=== PATIENT | female | born 1995 | race Caucasian/White ===

== ENCOUNTER 2022-08-26 07:41 | Inpatient (IN) ==
[2022-08-26] MEDS ORDERED: OXYTOCIN 30 UNITS/500 ML BAG IV PRN ×2 (07:58)
[2022-08-26] MEDS ORDERED: LIDOCAINE 1% LOCAL 20 ML VIAL INFIL PRN (07:58)
[2022-08-26] MEDS: LACTATED RINGER'S 1,000 ML IV PRN ×3 (08:34→20:32)
--- NOTE | 2022-08-26 08:37 | History & Physical Report ---
Date of Service August 26, 2022 Assessment & Plan (1) 38 weeks gestation of : Plan: Admit, routine labs, oxytocin for augmentation Plan to AROM after adequate GBS coverage Epidural patient request Anticipate spontaneous vaginal delivery (2) Cholestasis during in third trimester: Plan: Well-controlled on oral medication CMP pending (3) COVID-19 affecting in third trimester: Plan: Diagnosed at 32 weeks, COVID test pending this morning (4) GBS (group B Streptococcus carrier), +RV culture, currently : Plan: Start IV clindamycin 900 mg every 8 hours GBS coverage, as culture is clinda sensitive Admission and Anticipated Discharge Date Admission Date: August 26, 2022 History of Present Illness Chief Complaint: IOL for cholestasis Primary Care Provider: NO PCP 7.4: 7.4/21.6% patient is a 26-year-old at 38 weeks and 2 days dated by 9- week ultrasound who presents to labor and delivery for induction of labor of cholestasis at term. Patient symptoms have improved since taking ursodiol 300 mg twice daily. Patient denies leaking of fluid or vaginal bleeding. Notes good movement. Complaining of regular contractions every 2 to 3 minutes. has been complicated by cholestasis, COVID-19 infection at 32 weeks, and GBS positive, with penicillin allergy Allergies Allergy/AdvReac Type Severity Reaction Status Date / Time amoxicillin Allergy Swelling Verified 08/15/22 14:06 of Lip/Tongue/Throat Home Medications Medication Instructions Recorded Confirmed Type vit no.95-ferrous 1 tab PO DAILY 08/07/22 08/15/22 History fumarate 28 mg-folic acid 800 mcg tablet () ursodiol 300 mg capsule 300 mg PO BID 08/07/22 08/15/22 History Patient History Medical History Cholestasis during diagnosed 1 week ago labor in third trimester contractions starting 35 weeks- placed on procardia Surgical History [place] teeth removed age 17 Social History Smoking Status: Never smoker Second Hand Exposure: No; Do You Dip or Chew Tobacco: No; Tobacco Cessation Education Requested by Patient: No Hx Alcohol Use: No Hx Substance Use: No Preferred Language: [place] Communication Ability: Effective 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 Beliefs That Will Affect Care: None marital status: Current Living Situation: Spouse Other Information That Helps Us Care for You: No Feels Safe at Home: Yes Safety Concerns: Feels Safe At This Time Assistive Devices: None 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 Review of Systems All systems reviewed & are unremarkable except as noted in HPI & below Physical Exam Constitutional: WD/WN, vitals as above Respiratory: normal respiratory effort, lungs clear to auscultation Cardiovascular: RRR, no murmur, no edema Gastrointestinal (Abdomen): normal bowel sounds, soft, nontender, no hepatosplenomegaly David's 3500 g Genitourinary: no vaginal lesions, no adnexal mass Cx: /-2 Results & Data ([facility]) Vital Signs (Past 12 Hours) Vital Signs Temp Pulse Resp BP 08/26/22 07:56 36.5 C 101 H 16 117/68 08/26/22 07:47 101 H 117/68 Monitoring External Monitor heart tracing: Baseline 1 35-1 40, moderate variability, positive accelerations, no decelerations, category 1 tracing Tocodynamometer Q. 2 to 3 minutes
[2022-08-26] MEDS: CLINDAMYCIN/D5W 900 MG/50 ML BAG IV SCH ×2 (08:53→16:55)
[2022-08-26 08:59] LABS: Hematocrit (blood only) 37.6 % (34.1-44.9); Hemoglobin 13.4 g/dl (12.0-16.0); Mean Corpuscular Hemoglobin 30.8 pg (25.0-34.0); Mean Corpuscular Hgb Conc 35.6 g/dL (32.0-36.0); Mean Corpuscular Volume 86.4 fL (80.0-100.0); Platelet Count 234 K/uL (130-400); RDW Coefficient of Variation 13.1 % (11.5-14.5); RDW Standard Deviation 40.6 fL (36.4-46.3); Red Blood Count 4.35 M/uL (3.93-5.22); White Blood Count 15.65 K/ul (4.8-10.8)
[2022-08-26 09:23] LABS: Alanine Aminotransferase 9 U/L (7-52); Albumin Level 3.3 gm/dl (3.4-5.0); Alkaline Phosphatase 136 U/L (34-104); Anion Gap 9 (3-11); Aspartate Aminotransferase 16 U/L (13-39); BUN Creatinine Ratio 13.7 (10-20); Bilirubin,Total 0.4 mg/dl (0.2-1.0); Blood Urea Nitrogen 7 mg/dl (6-23); Carbon Dioxide 22 mmol/L (21-32); Chloride 105 mmol/L (98-107); Creatinine Clr Calc Pharmacy 165.6 ml/min; Est GFR (African American) > 150.0 ml/min; Est GFR (Non-African American) 133.6 ml/min; Globulin 3.4 gm/dl (2.5-4.0); Glucose 75 mg/dl (70-99(Fasting)); Potassium 3.7 mmol/L (3.5-5.1); Sodium 136 mmol/L (136-145); Total Protein 6.7 gm/dl (6.0-8.3)
[2022-08-26] MEDS: ursodioL 300 MG CAP PO SCH ×2 (10:20→21:08)
--- NOTE | 2022-08-26 11:56 | Labor Progress Brief Note ---
Date of Service August 26, 2022 Subjective More uncomfortable with contractions, would like an epidural before AROM is performed Assessment & Plan (1) 38 weeks gestation of : Plan: Epidural per patient request We will plan to AROM after in place and IUPC Anticipate spontaneous vaginal delivery (2) Cholestasis during in third trimester: (3) COVID-19 affecting in third trimester: (4) GBS (group B Streptococcus carrier), +RV culture, currently : Plan: Has all received her first dose of clindamycin 900 mg IV, continue every 8 hours until delivery Admission and Anticipated Discharge Date Admission Date: August 26, 2022 Physical Exam Genitourinary: heart tracing: Baseline 1 40-1 45, moderate variability, positive accelerations, no decelerations, category 1 tracing Tocometer: Every to 2 minutes oxytocin at 10 milliunits/h Cervical exam not performed Results & Data ([facility]) Vital Signs (Past 12 Hours) Vital Signs Temp Pulse Resp BP 08/26/22 07:56 36.5 C 101 H 16 117/68 08/26/22 10:24 90 108/66 08/26/22 07:50 16 08/26/22 07:50 36.5 C 16 08/26/22 07:47 101 H 117/68
[2022-08-26] MEDS ORDERED: ePHEDrine sulfate 50 MG/ML AMP ONE (12:04)
[2022-08-26] MEDS ORDERED: SODIUM CHLORIDE 0.9% INJ 10 ML VIAL ONE (12:04)
[2022-08-26] MEDS ORDERED: fentaNYL citrate 100 MCG/2 ML VIAL ONE (12:04)
[2022-08-26] MEDS ORDERED: fentaNYL 2MCG/ML ROPIVACAINE 1.25MG/ML 100 ML BAG EPI ONE (12:05)
[2022-08-26] MEDS ORDERED: LIDOCAINE 2%/EPINEPHRINE 1:200,000 20 ML SDV ONE (12:05)
[2022-08-26] MEDS ORDERED: BUPIVACAINE 0.25% 30 ML VIAL ONE (12:05)
[2022-08-26] MEDS ORDERED: ONDANSETRON INJ 2 MG/ML 2 ML VIAL IV PRN (12:37)
[2022-08-26] MEDS ORDERED: ePHEDrine sulfate 50 MG/ML AMP IV PRN (12:37)
[2022-08-26] MEDS ORDERED: NALOXONE HCL 1 MG in SODIUM CHLORIDE 0.9% 1000ML 1,000 ML IV PRN (12:37)
[2022-08-26] MEDS ORDERED: NALBUPHINE HCL INJ 10 MG/ML AMP IV PRN (12:37)
[2022-08-26] MEDS ORDERED: NALOXONE HCL 0.4 MG/1 ML VIAL/CARP IV PRN (12:37)
[2022-08-26] MEDS ORDERED: diphenhydrAMINE 50 MG/ML VIAL IV PRN (12:37)
--- NOTE | 2022-08-26 12:38 | Anesthesiology Consultation ---
Date of Service August 26, 2022 Assessment & Plan Chart Review Chart Review: Patient NOT seen in Pre Admission Testing and Acceptable Risk for Labor Epidural Consults Requested none ASA ASA2 Proposed Anesthesia Anesthesia Type: Labor Epidural and CSE Risk / Benefits Reviewed With: PT / POA / Parent / Guardian, Accepts Plan and Informed Consent Obtained History Height/Weight Height: 5 ft 4 in Weight: 73.482 kg Allergies Allergy/AdvReac Type Severity Reaction Status Date / Time amoxicillin Allergy Swelling Verified 08/15/22 14:06 of Lip/Tongue/Throat Medications Home Medications Medication Instructions Recorded Confirmed Last Taken vit no.95-ferrous 1 tab PO DAILY 08/07/22 08/26/22 08/26/22 06:30 fumarate 28 mg-folic acid 800 mcg tablet () ursodiol 300 mg capsule 300 mg PO BID 08/07/22 08/26/22 08/26/22 06:30 Active Medications Generic Name Dose Route Start Last Admin Trade Name Freq PRN Reason Stop Dose Admin Oxytocin 30 units in 500 mls @ 10 mls/hr 08/26/22 07:58 08/26/22 11:30 Pitocin IV 08/28/22 07:57 0.6 units/hr .Q24H PRN 10 mls/hr Labor Induction/Augmentation Titration Protocol 0.6 UNITS/HR Lactated Ringer's 1,000 mls @ 125 mls/hr 08/26/22 07:58 08/26/22 12:38 Lr IV 08/28/22 07:57 125 mls/hr .Q8H PRN Administration L&D Protocol Protocol Clindamycin Phosphate 900 mg in 50 mls @ 100 mls/hr 08/26/22 08:15 08/26/22 08:53 Cleocin/D5w IV 09/05/22 08:14 100 mls/hr Q8H GILDA Administration Ursodiol 300 mg 08/26/22 09:00 08/26/22 10:20 Ursodiol 300 Mg Cap PO 09/25/22 08:59 Not Given BID GILDA NPO Date Last Intake of Fluids: 08/26/22 Time Last Intake of Fluids: 12:00 Date Last Intake of Solids: 08/26/22 Time Last Intake of Solids: 07:00 Past Medical History Medical History Cholestasis during diagnosed 1 week ago labor in third trimester contractions starting 35 weeks- placed on procardia Exercise / Class Metabolic Activity II 4-5 Yardwork/Stairs/Walk up hill Past Surgical History Surgical History [place] teeth removed age 17 Past Anesthesia History No Hx of Anesthesia Complications and No Family Hx of Anesthesia Complications History of PONV No Hx of PONV and No Hx of Motion Sickness Social History Smoking Status: Never smoker Do You Dip or Chew Tobacco: No Hx Alcohol Use: No Hx Substance Use: No substance use type: does not use Review of Systems no chest pain or sob Physical Exam Vital Signs Last Vital Signs Temp 36.6 C 08/26/22 12:20 Pulse 105 H 08/26/22 12:37 Resp 16 08/26/22 12:20 BP 113/60 08/26/22 12:37 Pulse Ox 100 08/26/22 12:33 ENMT Mouth: no TMJ abnormality Thyromental Distance: > or= 3.5 Finger Breadths Mallampati Class: II Neck normal visual inspection Respiratory normal respiratory effort Auscultation: lungs clear to auscultation bilaterally Cardiovascular Rate/Rhythm: regular rate and regular rhythm Musculoskeletal Spine: normal cervical ROM Neurologic moves all extremities Psychiatric Orientation: alert and oriented x 3 Testing Laboratory Results 08/26/22 08:38 08/26/22 08:38
--- NOTE | 2022-08-26 13:09 | Labor Progress Brief Note ---
Date of Service August 26, 2022 Subjective Comfortable with epidural in place Assessment & Plan (1) 38 weeks gestation of : Plan: Continue oxytocin for augmentation Anticipate spontaneous vaginal delivery (2) Cholestasis during in third trimester: (3) COVID-19 affecting in third trimester: (4) GBS (group B Streptococcus carrier), +RV culture, currently : Plan: Has all received her first dose of clindamycin 900 mg IV, continue every 8 hours until delivery Admission and Anticipated Discharge Date Admission Date: August 26, 2022 Physical Exam Genitourinary: heart tracing: Baseline 150, moderate variability, positive accelerations, several late decelerations, category 2 tracing Tocometer: Contractions every 1 to 2 minutes, oxytocin currently at 12 milliunits/h Cervix: 4/80/0 station, AROM performed with large amount of clear fluid, IUPC was placed, no cord felt. No complications Results & Data ([facility]) Vital Signs (Past 12 Hours) Vital Signs Temp Pulse Resp BP Pulse Ox 08/26/22 07:56 36.5 C 101 H 16 117/68 08/26/22 13:06 85 115/70 08/26/22 13:04 80 134/82 08/26/22 13:03 80 98 08/26/22 13:02 83 124/64 08/26/22 13:00 93 H 112/67 08/26/22 12:58 97 08/26/22 12:58 85 08/26/22 12:58 95 H 111/63 08/26/22 12:56 81 109/66 08/26/22 12:53 88 96 08/26/22 12:54 91 H 106/57 L 08/26/22 12:52 91 H 105/58 L 08/26/22 12:51 90 134/60 08/26/22 12:48 90 98 08/26/22 12:47 96 H 133/71 08/26/22 12:46 93 H 122/69 08/26/22 12:43 94 H 100 08/26/22 12:38 93 H 100 08/26/22 12:39 80 116/62 08/26/22 12:37 105 H 113/60 08/26/22 12:33 90 100 08/26/22 12:28 87 100 08/26/22 12:23 91 H 99 08/26/22 11:30 18 08/26/22 11:30 36.6 C 18 08/26/22 12:20 16 08/26/22 12:20 36.6 C 16 08/26/22 12:18 78 115/58 L 98 08/26/22 12:12 78 108/65 08/26/22 10:24 90 108/66 08/26/22 07:50 16 08/26/22 07:50 36.5 C 16 08/26/22 07:47 101 H 117/68
[2022-08-26] MEDS: fentaNYL 2MCG/ML ROPIVACAINE 1.25MG/ML 100 ML BAG EPI PRN ×2 (13:41→19:56)
[2022-08-26] MEDS ORDERED: NURSING L&D Epidural Breakthrough Pain Update ONE (13:45)
--- NOTE | 2022-08-26 15:37 | Labor Progress Brief Note ---
Date of Service August 26, 2022 Subjective Comfortable with epidural in place. No complaints Assessment & Plan (1) 38 weeks gestation of : Plan: Continue oxytocin for augmentation Anticipate spontaneous vaginal delivery (2) Cholestasis during in third trimester: (3) COVID-19 affecting in third trimester: (4) GBS (group B Streptococcus carrier), +RV culture, currently : Plan: Has all received her first dose of clindamycin 900 mg IV, continue every 8 hours until delivery Admission and Anticipated Discharge Date Admission Date: August 26, 2022 Physical Exam Genitourinary: heart tracing: Baseline 150, moderate variability, positive accelerations, possible late decelerations, category 2 tracing Tocometer: Contractions every to 2 minutes, Pitocin currently 14 milliunits/h Cervix: 5/90/-1, caput noted Results & Data ([facility]) Vital Signs (Past 12 Hours) Vital Signs Temp Pulse Resp BP Pulse Ox 08/26/22 15:10 36.7 C 71 20 106/59 L 08/26/22 07:56 36.5 C 101 H 16 117/68 08/26/22 15:33 80 100 08/26/22 15:28 69 100 08/26/22 15:27 71 99/55 L 91 08/26/22 15:23 63 100 08/26/22 15:18 64 100 08/26/22 15:15 84 93 08/26/22 15:13 77 98 08/26/22 15:12 74 106/59 L 08/26/22 15:00 16 08/26/22 15:00 36.6 C 16 08/26/22 15:08 70 100 08/26/22 15:05 80 93 08/26/22 15:03 72 100 08/26/22 14:58 68 100 08/26/22 14:57 67 101/56 L 08/26/22 14:53 75 100 08/26/22 14:48 68 100 08/26/22 14:43 75 100 08/26/22 14:42 69 101/61 08/26/22 14:38 74 100 08/26/22 14:33 67 100 08/26/22 14:28 71 100 08/26/22 14:26 75 98/54 L 08/26/22 14:23 73 99 08/26/22 14:18 68 99 08/26/22 14:13 69 99 08/26/22 14:12 65 93/51 L 08/26/22 14:08 84 100 08/26/22 14:03 79 98 08/26/22 13:58 74 97 08/26/22 13:57 75 106/65 08/26/22 13:53 75 97 08/26/22 13:48 70 97 08/26/22 13:43 97 08/26/22 13:43 75 08/26/22 13:43 77 115/67 08/26/22 13:38 80 98 08/26/22 13:33 81 97 08/26/22 13:28 86 97 08/26/22 13:27 77 110/62 08/26/22 13:23 77 98 08/26/22 13:18 81 98 08/26/22 13:13 80 97 08/26/22 13:10 81 116/69 08/26/22 13:08 98 08/26/22 13:08 86 08/26/22 13:08 78 112/69 08/26/22 13:06 85 115/70 08/26/22 13:04 80 134/82 08/26/22 13:03 80 98 08/26/22 13:02 83 124/64 08/26/22 13:00 37.0 C 93 H 16 112/67 08/26/22 12:58 97 08/26/22 12:58 85 08/26/22 12:58 95 H 111/63 08/26/22 12:56 81 109/66 08/26/22 12:53 88 96 08/26/22 12:54 91 H 106/57 L 08/26/22 12:52 91 H 105/58 L 08/26/22 12:51 90 134/60 08/26/22 12:48 90 98 08/26/22 12:47 96 H 133/71 08/26/22 12:46 93 H 122/69 08/26/22 12:43 94 H 100 08/26/22 12:38 93 H 100 08/26/22 12:39 80 116/62 08/26/22 12:37 105 H 113/60 08/26/22 12:33 90 100 08/26/22 12:28 87 100 08/26/22 12:23 91 H 99 08/26/22 11:30 18 08/26/22 11:30 36.6 C 18 08/26/22 12:20 16 08/26/22 12:20 36.6 C 16 08/26/22 12:18 78 115/58 L 98 08/26/22 12:12 78 108/65 08/26/22 10:24 90 108/66 08/26/22 07:50 16 08/26/22 07:50 36.5 C 16 08/26/22 07:47 101 H 117/68
--- NOTE | 2022-08-26 18:41 | Labor Progress Brief Note ---
Date of Service August 26, 2022 Subjective Comfortable with epidural in place. No complaints Assessment & Plan (1) 38 weeks gestation of : Plan: Continue oxytocin for augmentation. Previously noted doublet and triplet uterine contractions, oxytocin was discontinued for 30 minutes, and patient was still rubén therefore the oxytocin was restarted at 2 milliunits/h and increase by 2 milliunits Anticipate spontaneous vaginal delivery (2) Cholestasis during in third trimester: (3) COVID-19 affecting in third trimester: (4) GBS (group B Streptococcus carrier), +RV culture, currently : Plan: Has all received her first dose of clindamycin 900 mg IV, continue every 8 hours until delivery Admission and Anticipated Discharge Date Admission Date: August 26, 2022 Physical Exam Physical Exam: heart tracing: Baseline 150, moderate variability, positive accelerations, no decelerations, category 1 tracing Tocometer: Contractions every 2 to 3 minutes oxytocin currently running, not currently adequate Cervix: 6/90/-1, + caput Results & Data ([facility]) Vital Signs (Past 12 Hours) Vital Signs Temp Pulse Resp BP Pulse Ox 08/26/22 15:10 36.7 C 71 20 106/59 L 08/26/22 07:56 36.5 C 101 H 16 117/68 08/26/22 18:33 87 100 08/26/22 18:28 70 99 08/26/22 18:27 70 101/64 08/26/22 18:25 16 08/26/22 18:25 36.6 C 16 08/26/22 18:23 73 98 08/26/22 18:18 74 99 08/26/22 18:13 81 101/63 100 08/26/22 18:10 86 92 08/26/22 18:08 90 100 08/26/22 18:03 77 99 08/26/22 17:58 100 08/26/22 17:58 86 08/26/22 17:58 88 137/69 08/26/22 17:31 20 08/26/22 17:31 37.0 C 20 08/26/22 17:53 94 H 99 08/26/22 17:48 90 100 08/26/22 17:43 75 100 08/26/22 17:42 82 100/62 08/26/22 17:38 86 99 08/26/22 17:33 84 99 08/26/22 17:28 81 100 08/26/22 17:27 78 103/66 08/26/22 17:23 86 100 08/26/22 17:18 73 99 08/26/22 17:13 72 110/63 99 08/26/22 17:08 75 99 08/26/22 17:03 99 08/26/22 17:03 75 08/26/22 17:03 84 93 08/26/22 16:58 74 100 08/26/22 16:56 62 100/56 L 08/26/22 16:53 64 100 08/26/22 16:48 65 100 08/26/22 16:46 66 94 08/26/22 16:43 67 99 08/26/22 16:41 71 101/58 L 08/26/22 16:38 68 100 08/26/22 16:31 18 08/26/22 16:31 36.6 C 18 08/26/22 16:33 67 100 08/26/22 16:28 65 100 08/26/22 16:27 65 101/56 L 08/26/22 16:23 73 100 08/26/22 16:18 65 100 08/26/22 16:13 64 100 08/26/22 16:08 59 L 100 08/26/22 16:03 62 100 08/26/22 15:58 57 L 100 08/26/22 15:53 58 L 100 08/26/22 15:48 65 100 08/26/22 15:43 62 100 08/26/22 15:38 66 100 08/26/22 15:33 80 100 08/26/22 15:28 69 100 08/26/22 15:27 71 99/55 L 91 08/26/22 15:23 63 100 08/26/22 15:18 64 100 08/26/22 15:15 84 93 08/26/22 15:13 77 98 08/26/22 15:12 74 106/59 L 08/26/22 15:00 16 08/26/22 15:00 36.6 C 16 08/26/22 15:08 70 100 08/26/22 15:05 80 93 08/26/22 15:03 72 100 08/26/22 14:58 68 100 08/26/22 14:57 67 101/56 L 08/26/22 14:53 75 100 08/26/22 14:48 68 100 08/26/22 14:43 75 100 08/26/22 14:42 69 101/61 08/26/22 14:38 74 100 08/26/22 14:33 67 100 08/26/22 14:28 71 100 08/26/22 14:26 75 98/54 L 08/26/22 14:23 73 99 08/26/22 14:18 68 99 08/26/22 14:13 69 99 08/26/22 14:12 65 93/51 L 08/26/22 14:08 84 100 08/26/22 14:03 79 98 08/26/22 13:58 74 97 08/26/22 13:57 75 106/65 08/26/22 13:53 75 97 08/26/22 13:48 70 97 08/26/22 13:43 97 08/26/22 13:43 75 08/26/22 13:43 77 115/67 08/26/22 13:38 80 98 08/26/22 13:33 81 97 08/26/22 13:28 86 97 08/26/22 13:27 77 110/62 08/26/22 13:23 77 98 08/26/22 13:18 81 98 08/26/22 13:13 80 97 08/26/22 13:10 81 116/69 08/26/22 13:08 98 08/26/22 13:08 86 08/26/22 13:08 78 112/69 08/26/22 13:06 85 115/70 08/26/22 13:04 80 134/82 08/26/22 13:03 80 98 08/26/22 13:02 83 124/64 08/26/22 13:00 37.0 C 93 H 16 112/67 08/26/22 12:58 97 08/26/22 12:58 85 08/26/22 12:58 95 H 111/63 08/26/22 12:56 81 109/66 08/26/22 12:53 88 96 08/26/22 12:54 91 H 106/57 L 08/26/22 12:52 91 H 105/58 L 08/26/22 12:51 90 134/60 08/26/22 12:48 90 98 08/26/22 12:47 96 H 133/71 08/26/22 12:46 93 H 122/69 08/26/22 12:43 94 H 100 08/26/22 12:38 93 H 100 08/26/22 12:39 80 116/62 08/26/22 12:37 105 H 113/60 08/26/22 12:33 90 100 08/26/22 12:28 87 100 08/26/22 12:23 91 H 99 08/26/22 11:30 18 08/26/22 11:30 36.6 C 18 08/26/22 12:20 16 08/26/22 12:20 36.6 C 16 08/26/22 12:18 78 115/58 L 98 08/26/22 12:12 78 108/65 08/26/22 10:24 90 108/66 08/26/22 07:50 16 08/26/22 07:50 36.5 C 16 08/26/22 07:47 101 H 117/68
--- NOTE | 2022-08-26 22:30 | Labor Progress Brief Note ---
Date of Service August 26, 2022 Subjective Comfortable with epidural in place. No complaints Assessment & Plan (1) 38 weeks gestation of : Plan: Continue oxytocin for augmentation Anticipate spontaneous vaginal delivery (2) Cholestasis during in third trimester: (3) COVID-19 affecting in third trimester: (4) GBS (group B Streptococcus carrier), +RV culture, currently : Plan: Has all received her first dose of clindamycin 900 mg IV, continue every 8 hours until delivery Admission and Anticipated Discharge Date Admission Date: August 26, 2022 Physical Exam Physical Exam: Heart tracing: Baseline 150, moderate variability, positive accelerations, prolonged deceleration for approximately 2 minutes to 90 bpm at 2219, category 2 tracing\comment: Contractions every 1 to 5 minutes Cervix: 9/100/+1 Results & Data ([facility]) Vital Signs (Past 12 Hours) Vital Signs Temp Pulse Resp BP Pulse Ox 08/26/22 15:10 36.7 C 71 20 106/59 L 08/26/22 22:27 74 115/60 08/26/22 22:23 89 96 08/26/22 22:18 79 97 08/26/22 22:13 80 97 08/26/22 22:12 93 H 114/68 08/26/22 22:08 83 98 08/26/22 22:00 18 08/26/22 22:00 18 08/26/22 22:03 76 97 08/26/22 21:58 81 98 08/26/22 21:57 74 109/56 L 08/26/22 21:53 75 97 08/26/22 21:48 85 98 08/26/22 21:43 76 98 08/26/22 21:42 74 118/58 L 86 L 08/26/22 21:38 75 98 08/26/22 21:33 81 99 08/26/22 21:30 18 08/26/22 21:30 18 08/26/22 21:28 88 98 08/26/22 21:10 36.8 C 08/26/22 21:27 89 90 08/26/22 21:23 98 H 100 08/26/22 21:18 73 100 08/26/22 21:15 75 91 08/26/22 21:13 75 99 08/26/22 21:11 76 122/60 08/26/22 21:08 76 99 08/26/22 21:03 82 97 08/26/22 21:00 18 08/26/22 21:00 18 08/26/22 20:58 72 98 08/26/22 20:57 74 111/59 L 08/26/22 20:53 75 97 08/26/22 20:48 93 H 100 08/26/22 20:43 99 08/26/22 20:43 77 08/26/22 20:43 76 101/59 L 08/26/22 20:30 18 08/26/22 20:30 18 08/26/22 20:38 69 99 08/26/22 20:33 70 100 08/26/22 20:28 99 08/26/22 20:28 71 08/26/22 20:28 65 103/57 L 08/26/22 20:23 99 H 98 08/26/22 20:20 74 85 L 08/26/22 20:00 18 08/26/22 20:00 18 08/26/22 20:18 70 98 08/26/22 20:13 100 08/26/22 20:13 72 08/26/22 20:13 69 93/53 L 08/26/22 20:08 80 100 08/26/22 20:03 67 100 08/26/22 19:58 73 100 08/26/22 19:57 73 90 08/26/22 19:56 63 105/69 08/26/22 19:53 69 97 08/26/22 19:49 70 92 08/26/22 19:48 69 98 08/26/22 19:43 73 100 08/26/22 19:42 71 99/62 L 08/26/22 19:38 73 100 08/26/22 19:33 75 100 08/26/22 19:28 99 08/26/22 19:28 71 08/26/22 19:28 71 103/71 08/26/22 19:23 73 100 08/26/22 19:00 18 08/26/22 19:00 36.6 C 18 08/26/22 19:18 67 100 08/26/22 19:13 79 100 08/26/22 19:12 90 107/82 08/26/22 19:10 80 91 08/26/22 19:08 89 100 08/26/22 19:03 78 100 08/26/22 18:58 70 100 08/26/22 18:57 85 111/65 08/26/22 18:53 66 100 08/26/22 18:48 89 99 08/26/22 18:43 86 99/62 L 99 08/26/22 18:38 73 100 08/26/22 18:33 87 100 08/26/22 18:28 70 99 08/26/22 18:27 70 101/64 08/26/22 18:25 16 08/26/22 18:25 36.6 C 16 08/26/22 18:23 73 98 08/26/22 18:18 74 99 08/26/22 18:13 81 101/63 100 08/26/22 18:10 86 92 08/26/22 18:08 90 100 08/26/22 18:03 77 99 08/26/22 17:58 100 08/26/22 17:58 86 08/26/22 17:58 88 137/69 08/26/22 17:31 20 08/26/22 17:31 37.0 C 20 08/26/22 17:53 94 H 99 08/26/22 17:48 90 100 08/26/22 17:43 75 100 08/26/22 17:42 82 100/62 08/26/22 17:38 86 99 08/26/22 17:33 84 99 08/26/22 17:28 81 100 08/26/22 17:27 78 103/66 08/26/22 17:23 86 100 08/26/22 17:18 73 99 08/26/22 17:13 72 110/63 99 08/26/22 17:08 75 99 08/26/22 17:03 99 08/26/22 17:03 75 08/26/22 17:03 84 93 08/26/22 16:58 74 100 08/26/22 16:56 62 100/56 L 08/26/22 16:53 64 100 08/26/22 16:48 65 100 08/26/22 16:46 66 94 08/26/22 16:43 67 99 08/26/22 16:41 71 101/58 L 08/26/22 16:38 68 100 08/26/22 16:31 18 08/26/22 16:31 36.6 C 18 08/26/22 16:33 67 100 08/26/22 16:28 65 100 08/26/22 16:27 65 101/56 L 08/26/22 16:23 73 100 08/26/22 16:18 65 100 08/26/22 16:13 64 100 08/26/22 16:08 59 L 100 08/26/22 16:03 62 100 08/26/22 15:58 57 L 100 08/26/22 15:53 58 L 100 08/26/22 15:48 65 100 08/26/22 15:43 62 100 08/26/22 15:38 66 100 08/26/22 15:33 80 100 08/26/22 15:28 69 100 08/26/22 15:27 71 99/55 L 91 08/26/22 15:23 63 100 08/26/22 15:18 64 100 08/26/22 15:15 84 93 08/26/22 15:13 77 98 08/26/22 15:12 74 106/59 L 08/26/22 15:00 16 08/26/22 15:00 36.6 C 16 08/26/22 15:08 70 100 08/26/22 15:05 80 93 08/26/22 15:03 72 100 08/26/22 14:58 68 100 08/26/22 14:57 67 101/56 L 08/26/22 14:53 75 100 08/26/22 14:48 68 100 08/26/22 14:43 75 100 08/26/22 14:42 69 101/61 08/26/22 14:38 74 100 08/26/22 14:33 67 100 08/26/22 14:28 71 100 08/26/22 14:26 75 98/54 L 08/26/22 14:23 73 99 08/26/22 14:18 68 99 08/26/22 14:13 69 99 08/26/22 14:12 65 93/51 L 08/26/22 14:08 84 100 08/26/22 14:03 79 98 08/26/22 13:58 74 97 08/26/22 13:57 75 106/65 08/26/22 13:53 75 97 08/26/22 13:48 70 97 08/26/22 13:43 97 08/26/22 13:43 75 11/23/22 13:43 77 115/67 08/26/22 13:38 80 98 08/26/22 13:33 81 97 08/26/22 13:28 86 97 08/26/22 13:27 77 110/62 08/26/22 13:23 77 98 08/26/22 13:18 81 98 08/26/22 13:13 80 97 08/26/22 13:10 81 116/69 08/26/22 13:08 98 08/26/22 13:08 86 08/26/22 13:08 78 112/69 08/26/22 13:06 85 115/70 08/26/22 13:04 80 134/82 08/26/22 13:03 80 98 08/26/22 13:02 83 124/64 08/26/22 13:00 37.0 C 93 H 16 112/67 08/26/22 12:58 97 08/26/22 12:58 85 08/26/22 12:58 95 H 111/63 08/26/22 12:56 81 109/66 08/26/22 12:53 88 96 08/26/22 12:54 91 H 106/57 L 08/26/22 12:52 91 H 105/58 L 08/26/22 12:51 90 134/60 08/26/22 12:48 90 98 08/26/22 12:47 96 H 133/71 08/26/22 12:46 93 H 122/69 08/26/22 12:43 94 H 100 08/26/22 12:38 93 H 100 08/26/22 12:39 80 116/62 08/26/22 12:37 105 H 113/60 08/26/22 12:33 90 100 08/26/22 12:28 87 100 08/26/22 12:23 91 H 99 08/26/22 11:30 18 08/26/22 11:30 36.6 C 18 08/26/22 12:20 16 08/26/22 12:20 36.6 C 16 08/26/22 12:18 78 115/58 L 98 08/26/22 12:12 78 108/65
[2022-08-27] MEDS: fentaNYL 2MCG/ML ROPIVACAINE 1.25MG/ML 100 ML BAG EPI PRN (01:29)
[2022-08-27] MEDS ORDERED: DIPHTHERIA/TETANUS/PERTUSSIS 0.5 ML SYR/VIAL IM ONE (02:02)
[2022-08-27] MEDS ORDERED: HYDROCORTISONE ACETATE 25 MG SUPP PR PRN (02:02)
[2022-08-27] MEDS ORDERED: OXYTOCIN 30 UNITS/500 ML BAG IV PRN (02:02)
[2022-08-27] MEDS ORDERED: BENZOCAINE 20% AER SPR 82.5 GM CAN EXT PRN (02:02)
[2022-08-27] MEDS ORDERED: bisacodyL 10 MG SUPP PR PRN (02:02)
[2022-08-27] MEDS ORDERED: ACETAMINOPHEN 325 MG TAB PO PRN (02:02)
--- NOTE | 2022-08-27 02:06 | Delivery Summary ---
Vaginal Delivery Summary Date of Service August 27, 2022 Vaginal Delivery Summary Delivery Note History synopsis: Patient is a 26-year-old G1, P0 who was admitted at 38 weeks and 2 days for cholestasis of , as well as GBS positive. Upon admission she was 3 cm dilated and she received oxytocin for augmentation, followed by artificial rupture of membranes after an epidural. She progressed to 5 cm, 6 cm and then complete. She pushed with nursing staff and I was called for delivery Delivery Summary: Patient was placed in the dorsal lithotomy position. She was prepped and draped in the usual sterile fashion. Upon maternal pushing the head was delivered atraumatically followed by the anterior shoulders, posterior shoulders then the remainder of the infants body. The infants mouth and nose were bulb suction below the level of the perineum. A male infant was delivered at, 0147, weight pending with APGARS of 8 at 1 minute and 9 at 5 minutes. The umbilical cord was clamped times two and cut after 1 minute of delayed cord clamping. The was handed off to the awaiting nursing staff. Cord blood gases were not obtained. The placenta delivered intact with three vessel cord. Placenta was sent to pathology. Thirty units of Pitocin were added to the IV fluid and allowed to run freely. Uterine massage was performed until uterus was deemed firm. Upon inspection of the perineum, vagina and cervix were intact. Second degree laceration was noted which was repaired with 3-0 vicryl in the usual fashion. Upon re-inspection the patient was hemostatic. Uterus again massaged and found to be firm. Needle and sponge counts were correct. Patient was stable and allowed to recover in L&D room. was stable and remained in room with mother in the Family Care Unit. EBL 400mls
[2022-08-27] MEDS: CLINDAMYCIN/D5W 900 MG/50 ML BAG IV SCH (02:15)
[2022-08-27] MEDS: IBUPROFEN 600 MG TAB PO PRN ×3 (03:31→23:15)
--- NOTE | 2022-08-27 07:50 | Anesthesia Procedure Note ---
Date of Service August 27, 2022 Anesthesia Post Epidural Note Vital Signs Vital Signs: Temp Pulse Resp BP Pulse Ox O2 Del Method 37.0 C 64 18 110/60 99 08/27/22 04:15 08/27/22 04:15 08/27/22 04:15 08/27/22 04:15 08/27/22 01:43 08/27/22 04:15 Pain Intensity Abdomen: Pain Intensity: 2 Episiotomy/Laceration: Pain Intensity: 2 Notes Mental Status: alert / awake / arousable and participated in evaluation Nausea / Vomiting: adequately controlled Pain: adequately controlled Airway Patency, RR, SpO2: stable & adequate BP & HR: stable & adequate Hydration State: stable & adequate Neuraxial Anesthesia: was administered and sensory block resolved Anesthetic Complications: no major complications apparent and Pt Satisfied with anesthetic care Epidural: Removed without complications and With tip intact
[2022-08-27] MEDS: DOCUSATE SODIUM 100 MG CAP PO SCH ×2 (08:25→21:07)
[2022-08-27] MEDS: FERROUS SULFATE 325 MG TAB PO SCH (08:25)
[2022-08-27] MEDS: PRENATAL VITAMIN 1 TAB PO SCH (08:25)
[2022-08-28 07:13] LABS: Hemoglobin 12.9 g/dl (12.0-16.0); Mean Corpuscular Hemoglobin 30.7 pg (25.0-34.0); Mean Corpuscular Hgb Conc 34.9 g/dL (32.0-36.0); Mean Corpuscular Volume 88.1 fL (80.0-100.0); Mean Platelet Volume 10.8 fL (9.4-12.3); Platelet Count 224 K/uL (130-400); RDW Coefficient of Variation 13.5 % (11.5-14.5); White Blood Count 17.97 K/ul (4.8-10.8)
[2022-08-28] MEDS: IBUPROFEN 600 MG TAB PO PRN ×4 (08:21→23:42)
[2022-08-28] MEDS: FERROUS SULFATE 325 MG TAB PO SCH (08:22)
[2022-08-28] MEDS: DOCUSATE SODIUM 100 MG CAP PO SCH ×2 (08:22→19:02)
[2022-08-28] MEDS: PRENATAL VITAMIN 1 TAB PO SCH (08:22)
--- NOTE | 2022-08-28 11:23 | Obstetrical Progress Note ---
Date of Service August 28, 2022 Assessment & Plan (1) Normal course: PPD #1 pt doing well ' not latching well for breast feeding d/c tomorrow Results & Data ([facility]) Vital Signs (Past 12 Hours) Vital Signs Temp Pulse Resp BP Pulse Ox O2 Del Method 08/28/22 08:25 36.4 C L 80 16 109/71 99 Room Air
[2022-08-28] MEDS ORDERED: bisacodyL 5 MG TABEC PO SCH (20:00)
[2022-08-29] MEDS: IBUPROFEN 600 MG TAB PO PRN ×2 (03:24→08:24)
[2022-08-29 06:14] LABS: Basophils # (auto) 0.06 K/uL (0-0.2); Basophils % (auto) 0.5 %; Eosinophils # (auto) 0.26 K/uL (0-0.50); Hematocrit (blood only) 38.5 % (34.1-44.9); Hemoglobin 13.1 g/dl (12.0-16.0); Immature Granulocytes # (auto) 0.09 K/uL (0.00-0.02); Immature Granulocytes % (auto) 0.7 %; Lymphocytes # (auto) 2.72 K/uL (1.2-3.4); Lymphocytes % (auto) 20.6 %; Mean Corpuscular Hemoglobin 31.1 pg (25.0-34.0); Mean Corpuscular Volume 91.4 fL (80.0-100.0); Mean Platelet Volume 10.6 fL (9.4-12.3); Monocytes # (auto) 0.79 K/uL (0.24-0.82); Neutrophils # (auto) 9.31 K/uL (1.4-6.5); Neutrophils % (auto) 70.2 %; Platelet Count 233 K/uL (130-400); RDW Coefficient of Variation 13.7 % (11.5-14.5); RDW Standard Deviation 44.6 fL (36.4-46.3); Red Blood Count 4.21 M/uL (3.93-5.22); White Blood Count 13.23 K/ul (4.8-10.8)
[2022-08-29] MEDS: PRENATAL VITAMIN 1 TAB PO SCH (08:24)
[2022-08-29] MEDS: FERROUS SULFATE 325 MG TAB PO SCH (08:24)
[2022-08-29] MEDS: DOCUSATE SODIUM 100 MG CAP PO SCH (08:24)
--- NOTE | 2022-08-29 08:35 | Obstetrical Progress Note ---
Date of Service August 29, 2022 Assessment & Plan Admission and Anticipated Discharge Date Admission Date: August 26, 2022 Subjective Patient is seen and examined. She feels well, no complaints. Ambulating without dizziness Voiding without difficulty Tolerating regular diet with out N&V Bleeding is minimal No fever/ chills/ CP/ SOB/ N&V/ Leg pain Breast feeding without problems Vital Signs Temp Pulse Resp BP Pulse Ox O2 Del Method 08/29/22 03:15 36.5 C 84 16 104/68 97 Room Air 08/28/22 23:25 36.4 C L 74 16 109/71 98 Room Air 08/28/22 23:25 Room Air 08/28/22 15:30 36.7 C 82 16 107/70 98 Room Air Lab Results 08/26/22 08/26/22 08/26/22 Range/Units 07:45 08:38 08:38 WBC 15.65 H (4.8-10.8) K/ul RBC 4.35 (3.93-5.22) M/uL Hgb 13.4 (12.0-16.0) g/dl Hct 37.6 (34.1-44.9) % MCV 86.4 (80.0-100.0) fL MCH 30.8 (25.0-34.0) pg MCHC 35.6 (32.0-36.0) g/dL RDW Std Deviation 40.6 (36.4-46.3) fL RDW Coeff of Brian 13.1 (11.5-14.5) % Plt Count 234 (130-400) K/uL MPV 11.0 (9.4-12.3) fL Immature Gran % (Auto) % Neut % (Auto) % Lymph % (Auto) % [place] % (Auto) % Eos % (Auto) % Baso % (Auto) % Neut # (Auto) (1.4-6.5) K/uL Lymph # (Auto) (1.2-3.4) K/uL [place] # (Auto) (0.24-0.82) K/uL Eos # (Auto) (0-0.50) K/uL Baso # (Auto) (0-0.2) K/uL Immature Gran # (Auto) (0.00-0.02) K/uL Sodium 136 (136-145) mmol/L Potassium 3.7 (3.5-5.1) mmol/L Chloride 105 (98-107) mmol/L Carbon Dioxide 22 (21-32) mmol/L Anion Gap 9 (3-11) BUN 7 (6-23) mg/dl Creatinine 0.51 L (0.6-1.2) mg/dl Est Cr Clr Drug Dosing 165.6 ml/min Est GFR ( Amer) > 150.0 ml/min Est GFR (Non-Af Amer) 133.6 ml/min BUN/Creatinine Ratio 13.7 (10-20) Glucose 75 (70-99(Fasting)) mg/dl Calcium 9.0 (8.5-10.1) mg/dl Total Bilirubin 0.4 (0.2-1.0) mg/dl AST 16 (13-39) U/L ALT 9 (7-52) U/L Alkaline Phosphatase 136 H (34-104) U/L Total Protein 6.7 (6.0-8.3) gm/dl Albumin 3.3 L (3.4-5.0) gm/dl Globulin 3.4 (2.5-4.0) gm/dl Albumin/Globulin Ratio 1.0 (0.9-2) SARS-CoV-2, RNA, NAAT NEGATIVE (NEGATIVE) 08/28/22 08/29/22 Range/Units 06:51 06:02 WBC 17.97 H 13.23 H (4.8-10.8) K/ul RBC 4.20 4.21 (3.93-5.22) M/uL Hgb 12.9 13.1 (12.0-16.0) g/dl Hct 37.0 38.5 (34.1-44.9) % MCV 88.1 91.4 (80.0-100.0) fL MCH 30.7 31.1 (25.0-34.0) pg MCHC 34.9 34.0 (32.0-36.0) g/dL RDW Std Deviation 43.0 44.6 (36.4-46.3) fL RDW Coeff of Brian 13.5 13.7 (11.5-14.5) % Plt Count 224 233 (130-400) K/uL MPV 10.8 10.6 (9.4-12.3) fL Immature Gran % (Auto) 0.7 % Neut % (Auto) 70.2 % Lymph % (Auto) 20.6 % [place] % (Auto) 6.0 % Eos % (Auto) 2.0 % Baso % (Auto) 0.5 % Neut # (Auto) 9.31 H (1.4-6.5) K/uL Lymph # (Auto) 2.72 (1.2-3.4) K/uL [place] # (Auto) 0.79 (0.24-0.82) K/uL Eos # (Auto) 0.26 (0-0.50) K/uL Baso # (Auto) 0.06 (0-0.2) K/uL Immature Gran # (Auto) 0.09 H (0.00-0.02) K/uL Sodium (136-145) mmol/L Potassium (3.5-5.1) mmol/L Chloride (98-107) mmol/L Carbon Dioxide (21-32) mmol/L Anion Gap (3-11) BUN (6-23) mg/dl Creatinine (0.6-1.2) mg/dl Est Cr Clr Drug Dosing ml/min Est GFR ( Amer) ml/min Est GFR (Non-Af Amer) ml/min BUN/Creatinine Ratio (10-20) Glucose (70-99(Fasting)) mg/dl Calcium (8.5-10.1) mg/dl Total Bilirubin (0.2-1.0) mg/dl AST (13-39) U/L ALT (7-52) U/L Alkaline Phosphatase (34-104) U/L Total Protein (6.0-8.3) gm/dl Albumin (3.4-5.0) gm/dl Globulin (2.5-4.0) gm/dl Albumin/Globulin Ratio (0.9-2) SARS-CoV-2, RNA, NAAT (NEGATIVE) PE: General: Alert, orientedx3, NAD Abd: soft, NT, fundus firm, below Umbilicus Perineum intact, Lochia rubra minimal Ext; NT, no edema AP: 26 yo s/p , ppd# 2, s/p IOL for ICP VSS Afebrile doing well All questions were answered Discussed when to call. D/C home , F/U IN OFFICE Results & Data ([facility]) Vital Signs (Past 12 Hours) Vital Signs Temp Pulse Resp BP Pulse Ox O2 Del Method 08/29/22 03:15 36.5 C 84 16 104/68 97 Room Air 08/28/22 23:25 36.4 C L 74 16 109/71 98 Room Air 08/28/22 23:25 Room Air
== END 2022-08-29 12:35 | disposition home or self-care (01) | DRG 805 ==
LOC: 4S1 07:41 → 4E2 08-27 04:40